=== PATIENT | female | born 1945 | race Caucasian/White ===

== ENCOUNTER 2016-08-01 08:01 | Outpatient (CLI) | payer OTHER, MEDICAID | END 2016-08-01 19:56 | disposition home or self-care (01) | LOC: SUS 08:01 | PROVIDERS: ATTEND Family Medicine | DX: K80.20 Calculus of gallbladder without cholecystitis without obstruction (principal); R10.13 Epigastric pain | CPT/HCPCS: 76700-TC ==

== ENCOUNTER 2016-11-14 12:55 | Outpatient (CLI) | payer OTHER, MEDICAID | END 2016-11-14 17:46 | disposition home or self-care (01) | LOC: SRD 12:55 | PROVIDERS: ATTEND Specialist | DX: J44.9 Chronic obstructive pulmonary disease, unspecified (principal); R91.1 Solitary pulmonary nodule | CPT/HCPCS: 71250-TC ==

== ENCOUNTER 2016-11-15 11:20 | Outpatient (CLI) | payer OTHER, MEDICAID | END 2016-11-15 18:59 | disposition home or self-care (01) | LOC: SRD 11:20 | PROVIDERS: ATTEND Family Medicine | DX: Z01.818 Encounter for other preprocedural examination (principal); Z12.31 Encounter for screening mammogram for malignant neoplasm of breast; R05 Cough; M47.819 Spondylosis without myelopathy or radiculopathy, site unspecified; I70.90 Unspecified atherosclerosis | CPT/HCPCS: 71020; G0202 ==

== ENCOUNTER 2017-12-09 08:30 | Outpatient (CLI) | payer OTHER, MEDICAID | END 2017-12-09 18:59 | disposition home or self-care (01) | LOC: SCT 08:30 | PROVIDERS: ATTEND Specialist | DX: R91.8 Other nonspecific abnormal finding of lung field (principal); D71 Functional disorders of polymorphonuclear neutrophils; I70.0 Atherosclerosis of aorta; K76.0 Fatty (change of) liver, not elsewhere classified; Z90.49 Acquired absence of other specified parts of digestive tract | CPT/HCPCS: 71250-TC ==

== ENCOUNTER 2018-04-23 08:09 | Outpatient (CLI) | payer OTHER, MEDICAID | END 2018-04-23 18:51 | disposition home or self-care (01) | LOC: SMA 08:09 | PROVIDERS: ATTEND Family Medicine | DX: Z12.31 Encounter for screening mammogram for malignant neoplasm of breast (principal) | CPT/HCPCS: 77067 ==